=== PATIENT | female | born 2000 | race African-American/Black ===

== ENCOUNTER 2021-08-15 06:04 | Day surgery (SDC) | payer MEDICAID ==
[~2021-08-15 06:04] MED LIST: LACTATED RINGERS 1,000 ML IV SCH; MIDAZOLAM 2 MG/2 ML INJ IV NR; SCOPOLAMINE TRANSDERMAL PATCH 72 HR TD NR; SODIUM CHLORIDE 0.9% IRRIG SOLN 2000 ML IR ONE; WATER FOR IRRIG STERILE 1,500 ML BOTTLE IR ONE
--- NOTE | 2021-08-15 07:48 | Anesthesia Consultation ---
Anesthesia Consult and Med Hx Date of service: 08/15/21 - Airway Anesthetic Teeth Evaluation: Good ROM Head & Neck: Adequate Mental/Hyoid Distance: Adequate Mallampati Class: Class II Intubation Access Assessment: Probably Good - Pulmonary Exam CTA: Yes - Cardiac Exam Cardiac Exam: RRR - Pre-Operative Health Status ASA Pre-Surgery Classification: ASA1 Proposed Anesthetic Plan: General - Pulmonary Hx Smoking: No Hx Asthma: No Hx Sleep Apnea: No (MARY PRE SCREEN NEGATIVE) - Cardiovascular System Hx Hypertension: No (ONLY WHEN OK NOW) Hx Heart Attack/AMI: No - Central Nervous System Hx Seizures: No Hx Back Pain: No Hx Psychiatric Problems: No - Gastrointestinal Hx Gastroesophageal Reflux Disease: No (Only when - not currently) - Endocrine Hx End Stage Renal Disease: No Hx Liver Disease: No - Hematic Hx Anemia: No (ONLY WHEN OK NOW) Hx Sickle Cell Disease: No - Other Systems Hx Alcohol Use: No Hx Substance Use: No Hx Cancer: No - Additional Comments Anesthesia Medical History Comments: No hx of anesthetic complications
[2021-08-15 08:59] VITALS: BP 145/72
== END 2021-08-15 06:05 | disposition home or self-care (01) ==
LOC: OR 06:04
PROVIDERS: ATTEND Urology
DX: N32.89 Other specified disorders of bladder (principal); Z53.8 Procedure and treatment not carried out for other reasons; Z79.899 Other long term (current) drug therapy; Z98.890 Other specified postprocedural states; Z20.822 Contact with and (suspected) exposure to COVID-19
CPT/HCPCS: 81025; J7120; U0003; J2250

== ENCOUNTER 2021-09-05 06:55 | Day surgery (SDC) | payer MEDICAID ==
[~2021-09-05 06:55] MED LIST changes: -LACTATED RINGERS 1,000 ML IV SCH; -MIDAZOLAM 2 MG/2 ML INJ IV NR; -SCOPOLAMINE TRANSDERMAL PATCH 72 HR TD NR; -SODIUM CHLORIDE 0.9% IRRIG SOLN 2000 ML IR ONE; -WATER FOR IRRIG STERILE 1,500 ML BOTTLE IR ONE; +WATER FOR IRRIG STERILE 2000 ML IR ONE
[2021-09-05] MEDS ORDERED: MIDAZOLAM 2 MG/2 ML INJ IV NR (07:50)
[2021-09-05] MEDS ORDERED: LACTATED RINGERS 1,000 ML IV SCH (07:50)
--- NOTE | 2021-09-05 07:52 | Anesthesia Day of Surgery ---
Anesthesia Day of Surgery - Day of Surgery Patient Examined: Yes Patient H&P Reviewed: Yes Patient is NPO: Yes
--- NOTE | 2021-09-05 07:52 | Anesthesia Consultation ---
Anesthesia Consult and Med Hx Date of service: 09/05/21 - Airway Anesthetic Teeth Evaluation: Good ROM Head & Neck: Adequate Mental/Hyoid Distance: Adequate Mallampati Class: Class II Intubation Access Assessment: Good - Pre-Operative Health Status ASA Pre-Surgery Classification: ASA2 Proposed Anesthetic Plan: General - Pulmonary Hx Smoking: No Hx Asthma: No Hx Sleep Apnea: No (MARY PRE SCREEN NEGATIVE) - Cardiovascular System Hx Hypertension: No (ONLY WHEN OK NOW) Hx Heart Attack/AMI: No - Central Nervous System Hx Seizures: No Hx Back Pain: No Hx Psychiatric Problems: No - Gastrointestinal Hx Gastroesophageal Reflux Disease: No (Only when - not currently) - Endocrine Hx End Stage Renal Disease: No Hx Liver Disease: No - Hematic Hx Anemia: No (ONLY WHEN OK NOW) Hx Sickle Cell Disease: No - Other Systems Hx Alcohol Use: No Hx Substance Use: No Hx Cancer: No Hx Obesity: Yes
[2021-09-05] MEDS ORDERED: ceFAZolin/STERILE WATER 2 GM/20 ML SYRINGE IV NR (07:59)
[2021-09-05] MEDS ORDERED: LACTATED RINGERS 1,000 ML ONE (08:02)
[2021-09-05] MEDS ORDERED: MIDAZOLAM 2 MG/2 ML INJ ONE (08:12)
[2021-09-05] MEDS ORDERED: ceFAZolin/Water 2 GM/20 ML 2 GM/20 ML SYRINGE IV ONE (08:12)
[2021-09-05] MEDS ORDERED: LIDOCAINE MPF (2%) 20 MG/1 ML VIAL 5 ML ONE (08:23)
[2021-09-05] MEDS ORDERED: fentaNYL 100 MCG/2 ML INJ ONE ×2 (08:24→09:15)
[2021-09-05] MEDS ORDERED: propofoL 200 MG/20 ML VIAL IV ONE (08:24)
[2021-09-05] MEDS ORDERED: WATER FOR IRRIG STERILE 2000 ML IR ONE (09:15)
--- NOTE | 2021-09-05 10:28 | Operative Report ---
DATE OF SURGERY: 09/05/2021 PREOPERATIVE DIAGNOSIS: Bladder lesion seen on ultrasound. POSTOPERATIVE DIAGNOSIS: Normal bladder mucosa. OPERATIVE PROCEDURE: Cystoscopy. ATTENDING: Anthony Hough MD ANESTHESIA: General. ESTIMATED BLOOD LOSS: 5 mL DRAINS: None. COMPLICATIONS: None. SPECIMENS: Urine for cytology. INDICATIONS FOR PROCEDURE: The patient is a 20-year-old female who was found to have a possible bladder lesion on a transpelvic ultrasound. She presents today for diagnostic cystoscopy with possible biopsy as needed. DESCRIPTION OF PROCEDURE IN DETAIL: After the induction of suitable anesthesia and proper positioning and preparation in the dorsal lithotomy position, a cystoscope was used to enter the bladder under direct visualization. The patient's bladder was then inspected with both 30 and 70-degree lens, which showed no bladder or urethral mucosal lesions pending washings. The ureters were in their normal orthotopic positions. There urethra had no strictures or lesions of concern. The cytology was taken. The bladder was emptied and the cystoscope was removed. The patient was then awakened from anesthesia and transferred to the recovery room in stable condition. She tolerated the procedure well. She will return in 7 to 10 days to review cytology results. TID: [id number] RECEIPT: [id number] ELMA/SHILOH/SIOBHAN
[2021-09-05 10:57] VITALS: BP 118/78
--- NOTE | 2021-09-05 17:54 | Post Anesthesia Evaluation ---
- Post Anesthesia Evaluation Patient Participated: Yes Airway Patent: Yes Stable Respiratory Function: Yes Nausea/Vomiting: No Temp > 96.8F: Yes Pain Manageable: Yes Adequeate Hydration: Yes Anesthesia Complications: No Block Receding Appropriately: Not Applicable Patient on Ventilator: No
== END 2021-09-05 10:30 | disposition home or self-care (01) ==
LOC: OR 06:55
PROVIDERS: ATTEND Urology
DX: N32.89 Other specified disorders of bladder (principal); D41.4 Neoplasm of uncertain behavior of bladder; Z20.822 Contact with and (suspected) exposure to COVID-19; E66.9 Obesity, unspecified; Z79.899 Other long term (current) drug therapy; Z98.890 Other specified postprocedural states
CPT/HCPCS: 52000; 81025; 88112; C1758; J0690; J2250; J2704; J3010; J3490; J7120; U0003